=== PATIENT | female | born 2005 | race Two or more races ===

== ENCOUNTER 2025-11-26 12:59 | Emergency (ER) | payer MEDICAID, SELFPAY ==
[2025-11-26 13:00] VITALS: BMI 20.9
[2025-11-26 13:57] VITALS: BP 121/75; PULSE 80; RESP 16; TEMP 36.7; O2SAT 98
--- NOTE | 2025-11-26 14:03 | PD.EDFMALE ---
ED Female Urogenital RME/HPI General Chief complaint: Urogenital-Female Stated complaint: I THINK I HAVE UTI; HEMATURIA X1 HR AGO Time Seen by Provider: 11/26/25 13:55 Arrival date/time: 11/26/25 12:59 20-year-old female patient came in for evaluation regarding dysuria. Patient woke up fine this morning, about 1 hour ago while working, patient suddenly developed dysuria, and also noticed blood-tinged urine. Also complained of pelvic discomfort. Denies any fever no vomiting no other complaints noted. No medication was taken prior to ER visit. Related Data Previous Rx's ?Medication ?Instructions ?Recorded cephalexin 500 mg capsule 500 mg PO TID #21 caps 02/11/23 phenazopyridine 200 mg tablet 200 mg PO TID 6 doses #6 tabs 02/11/23 (Pyridium) naproxen 500 mg tablet 500 mg PO BID PRN pain #30 tabs 09/22/23 cefuroxime axetil 500 mg tablet 500 mg PO BID #14 tabs 11/26/25 Allergies Allergy/AdvReac Type Severity Reaction Status Date / Time NKA* Allergy Uncoded 11/26/25 13:02 Review of Systems Review of Systems Narrative Review of Systems: Review of system reviewed and within normal limits except mentioned in HPI ED Exam Narrative Physical exam: VITAL SIGNS: Reviewed. GENERAL APPEARANCE: Alert and interactive, follows commands, no acute distress, HEAD AND FACE: Non-traumatic. ENT: PERRL, pink conjunctivitis, eyelid no trauma, Mucous membrane moist. NECK: Supple, nontender, no nuchal rigidity. CHEST: No tenderness, no crepitus, no paradoxical movement, no retractions. LUNGS: Clear, well ventilated, symmetric, no rales, no wheezing, no ronchi, no stridor, good breath sounds bilaterally. HEART: Regular rate, regular rhythm, no murmur, no gallops. ABDOMEN: Soft, positive bowel sounds, nondistended, no guarding, nontender, no rebound, no masses, RECTAL: Deferred. GENITAL: Deferred. NEUROLOGICAL: Gross motor function intact sensory function intact, Appropriate for age. MUSCULOSKELETAL: low back nontender, full range of motion. EXTREMITIES: Nontender, full range of motion. SKIN: Color pink, dry, no rash, no lacerations, no abrasions, no contusions. LYMPHATICS: Deferred. Course Quality Measures none Orders Category Date Time Status HCG Qualitative,Urine Stat Lab 11/26/25 14:23 Completed UA, C/S IF [Urinalysis, C/S if Indicated] Stat Lab 11/26/25 14:23 Completed Vital Signs Vital signs: Vital Signs Temperature 98.1 F 11/26/25 13:57 Pulse Rate 80 11/26/25 13:57 Respiratory Rate 16 11/26/25 13:57 Blood Pressure 121/75 11/26/25 13:57 Pulse Oximetry (%) 98 11/26/25 13:57 Oxygen Delivery Method Room Air 11/26/25 13:57 Urogenital - Female MDM Narrative MDM Narrative:: Urinalysis positive for UTI. Patient was prescribed cefuroxime. Patient was advised to drink a lot of fluids including cranberry juice patient stable discharge home Patient data External records reviewed:: None Clinical information provided by:: patient Social determinants that could affect healthcare access:: none Patient has the following chronic illnesses:: None How is presenting disease/condition affected by chronic disease/condition?: no chronic disease Evaluation data The following diagnostics were reviewed and interpreted by me:: lab results Lab and/or radiology exams considered but not ordered:: None Interpretation Summary: See above Medications / Prescriptions Medications or Prescriptions considered but not ordered:: None Medication administrations:: None Consultations Consultation(s) initiated? (list below): No Diagnosis Urogenital Female Differential Diagnosis: urinary tract infection, cervicitis and cystitis Most likely diagnosis given after review of the tests above:: UTI Admission Indicated Admission indicated?: not indicated Explain why admission is indicated or not indicated:: Stable Admission Request Was there a request for admission?: No Disposition Plan Disposition Plan: Discharge Discharge Attestation Discharge Attestation: The patient was given an opportunity to ask questions and understood the discharge instructions. Discharge instructions specifically effects, indications for sooner follow up or return to the emergency department, and the expected course of current diagnosis. Patient condition: Stable Discharge Plan Plan Patient Disposition: HOME (Self Care) Discharge Disposition comment: Stable Prescriptions/Referrals Prescriptions/Med Rec: New cefuroxime axetil 500 mg tablet 500 mg PO BID Qty: 14 0RF No Action cephalexin 500 mg capsule 500 mg PO TID Qty: 21 0RF phenazopyridine [Pyridium] 200 mg tablet 200 mg PO TID Qty: 6 0RF naproxen 500 mg tablet 500 mg PO BID PRN (Reason: pain) Qty: 30 0RF Referrals: Kem Foster MD [Primary Care Provider, Family Practice] - In 1 week Problem List Clinical Impression: UTI (urinary tract infection) Patient/Caregiver Discharge Instructions Discharge Activity: activity as tolerated Education Materials: Urinary Tract Infections in Women Additional Instructions: Thank you for the opportunity for serving you today. You are stable for discharged . 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
[2025-11-26 14:43] LABS: Collection Type, Urine Clean Catch
[2025-11-26 15:04] LABS: HCG Qualitative,Urine Negative
[2025-11-26 15:10] LABS: Bacteria,Urine Rare; Bilirubin,Urine Negative (Negative); Blood,Urine 3+ (Negative); Clarity,Urine Clear (Clear/Hazy); Color,Urine Colorless (Lt Yel-Yel); Culture Indicated,Urine Not Indicated; Glucose, Urine Negative (Negative); Ketones,Urine Negative (Negative); Leukocyte Esterase,Urine Positive (Negative); Nitrite,Urine Negative (Negative); PH,Urine 6.5 (5.0-7.0); Protein,Urine Negative (Neg - Trace); RBC,Urine 3 /hpf (0-3); Specific Gravity,Urine 1.005 (1.001-1.035); Squamous Epithelial Cell,Urine 4 /hpf (0-5); Urobilinogen,Urine Negative mg/dL (0.0-1.0); WBC,Urine 3 /hpf (0-5)
== END 2025-11-26 16:24 | disposition home or self-care (01) ==
PROVIDERS: Nurse Practitioner Family; Emergency Provider Emergency Medicine; PCP Family Medicine
DX: N39.0 Urinary tract infection, site not specified (principal); R31.0 Gross hematuria
CPT/HCPCS: 81001; 81025; 99282